=== PATIENT | male | born 1940 | race Caucasian/White ===

== ENCOUNTER → 2017-09-01 | Outpatient (CLI) | payer MEDICARE, BC ==
--- NOTE | 2017-09-01 10:32 | CT ---
EXAMINATION TYPE: CT angio thoracic/abd aorta DATE OF EXAM: 09/01/2017 COMPARISON: NONE HISTORY: Athersclerosis w/ claudication bilateral legs, stenosis of axillary graft. CT DLP: 2571.3 mGycm. Automated Exposure Control for Dose Reduction was Utilized. CONTRAST: CTA scan of the thorax, abdomen and pelvis are performed without oral and without and with IV Contras t, patient injected with 100 mL of Isovue 370. Three-D reconstructed images are created on [employer] workstation and reviewed. FINDINGS: VASCULAR: Central pulmonary arteries are patent. There is moderate atherosclerotic change of aorta e xtending into branch vessels. There is three-vessel origin from aortic arch, no significant stenosis is seen. There is patent right axillary stent graft with clips which descends right anterolateral janae st wall and abdominal wall with horizontal bypass portion over left upper pelvis and anastomosis at b ilateral groin region. Patency is present. There is significantly significant stenosis however proxim al anastomosis with lumen diameter narrows to 2.6 mm raw data axial image 223 and subsequent diameter up to 7.7 mm distal to this. Computer analysis shows lumen diameter narrowed to 2.5 mm with reconsti tution up to 7.5 mm. Computer calculates 67% diameter narrowing and 85% area narrowing at area of foc al stenosis proximal anastomosis. There is moderate plaque bilateral common femoral arteries extending into superficial deep femoral ar teries without hemodynamically significant stenosis identified in the common or superficial femoral a rteries. There is moderate to severe plaque throughout the descending aorta most prominent in the abdominal ao rta with prominent predominantly noncalcified plaque seen. There is moderate to severe plaque in the common iliac arteries bilaterally. 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 There is patent righ t internal iliac artery. There is moderate to severe calcified plaque in the bilateral external iliac arteries which become occluded right before the anastomosis. There is patent celiac access, SMA, and bilateral single renal arteries always show moderate to sever e plaque without significant stenosis. There is occlusion of the GERTRUDE at origin with suspected retrogr radha filling. LUNGS: There is bibasilar linear scarring and/or atelectasis. No pleural effusion or pneumothorax is present bilaterally. MEDIASTINUM: There are no greater than 1 cm hilar or mediastinal lymph nodes. No pericardial effusi on is seen. Mild Cardiomegaly is present. Post CABG changes with mediastinal clips and sternal wires is seen. OTHER: No additional significant abnormality is seen. LIVER/GB: No significant abnormality is appreciated. PANCREAS: No significant abnormality is seen. SPLEEN: No significant abnormality is seen. ADRENALS: No significant abnormality is seen. KIDNEYS: There are multiple simple appearing cysts scattered throughout both kidneys BOWEL: No significant abnormality is seen. GENITAL ORGANS: Prostate gland is upper limits of normal in size with central zone calcifications bul ging on bladder base, LYMPH NODES: No greater than 1cm abdominal or pelvic lymph nodes are appreciated. OSSEOUS STRUCTURES: There is multilevel spurring in the thoracic spine. There is disc space narrowing lumbosacral junction. There is facet arthropathy lower lumbar levels. OTHER: No significant additional abnormality is seen. IMPRESSION: There is long segment right-sided axillary bifemoral stent graft with focal hemodynamical ly significant stenosis at proximal anastomosis identified narrowed down to 2.5 mm, calculated at 67% diameter narrowing by computer, with 85% area narrowing calculated by [employer] computer.
== END | disposition home or self-care (01) ==
LOC: RADCTMAIN 06:24
PROVIDERS: ATTEND Surgery
DX: T82.858A Stenosis of other vascular prosthetic devices, implants and grafts, initial encounter (principal); Z01.812 Encounter for preprocedural laboratory examination
CPT/HCPCS: 82565; 84520; 75635; 71275; 36415; Q9967

== ENCOUNTER 2024-02-12 17:53 | Inpatient (IN) | payer MEDICARE, BC ==
--- NOTE | 2024-02-12 18:12 | ED ---
SOB HPI - General Chief Complaint: Shortness of Breath Stated Complaint: SOB Time Seen by Provider: 02/12/24 18:09 Source: patient, RN notes reviewed, old records reviewed Mode of arrival: ambulatory Limitations: no limitations - History of Present Illness Initial Comments: This is an 83-year-old male to the ER for evaluation of severe weakness debility . Especially with activity this has been increasing lately after stent placement. But worse over the last few days, patient becomes very short of breath with any activity and presents to the ER on triage evaluation patient is cyanotic and hypoxic MD Complaint: shortness of breath -: days(s) Severity: severe Severity scale (1-10): 10 Consistency: constant Improves With: nothing Worsens With: nothing Known History Of: congestive heart failure Context: other (Recent stent placement) Associated Symptoms: chest pain Treatments Prior to Arrival: none - Related Data Home Medications Medication Instructions Recorded Confirmed ALPRAZolam [Xanax] 0.25 mg PO BID PRN 02/12/24 02/12/24 Aspirin EC [Ecotrin] 325 mg PO DAILY 02/12/24 02/12/24 Atorvastatin [Lipitor] 80 mg PO HS 02/12/24 02/12/24 Clopidogrel [Plavix] 75 mg PO DAILY 02/12/24 02/12/24 Doxycycline Hyclate 100 mg PO BID 02/12/24 02/12/24 Ipratropium [place] 0.06%Nasal 2 spray EA NOSTRIL TID PRN 02/12/24 02/12/24 [Atrovent Nasal 0.06%] Ketoconazole 2% Cream [Nizoral 2%] 1 applic TOPICAL DAILY 02/12/24 02/12/24 Losartan Potassium [Cozaar] 100 mg PO DAILY 02/12/24 02/12/24 Nitroglycerin Sl Tabs [Nitrostat] 0.4 mg SUBLINGUAL Q5M PRN 02/12/24 02/12/24 Omeprazole [PriLOSEC] 20 mg PO DAILY 02/12/24 02/12/24 Pentoxifylline [TRENtal] 400 mg PO BID 02/12/24 02/12/24 Silver Sulfadiazine [SSD 1% Cream] 1 applic TOPICAL DAILY 02/12/24 02/12/24 amLODIPine [Norvasc] 10 mg PO DAILY 02/12/24 02/12/24 atenoloL [Tenormin] 25 mg PO DAILY 02/12/24 02/12/24 hydroCHLOROthiazide [Hydrodiuril] 25 mg PO DAILY 02/12/24 02/12/24 Allergies Allergy/AdvReac Type Severity Reaction Status Date / Time bee venom protein (honey bee) Allergy Rash/Hives Verified 02/12/24 19:30 Review of Systems ROS Statement: Those systems with pertinent positive or pertinent negative responses have been documented in the HPI. ROS Other: All systems not noted in ROS Statement are negative. Past Medical History Past Medical History: Coronary Artery Disease (CAD), Chest Pain / Angina, H yperlipidemia, Hypertension, Myocardial Infarction (DC) Past Surgical History: Coronary Bypass/CABG, Heart Catheterization With Stent Additional Past Surgical History / Comment(s): eye cataracts endarectomy General Exam Limitations: no limitations General appearance: alert, in no apparent distress, anxious, in distress Head exam: Present: atraumatic, normocephalic, normal inspection Eye exam: Present: normal appearance, PERRL, EOMI. Absent: scleral icterus, conjunctival injection, periorbital swelling ENT exam: Present: normal exam, mucous membranes moist Neck exam: Present: normal inspection. Absent: tenderness, meningismus, lymphadenopathy Respiratory exam: Present: respiratory distress, wheezes, accessory muscle use, decreased breath sounds, prolonged expiratory. Absent: rales, rhonchi, stridor Cardiovascular Exam: Present: regular rate, normal rhythm, normal heart sounds. Absent: systolic murmur, diastolic murmur, rubs, gallop, clicks GI/Abdominal exam: Present: soft, normal bowel sounds. Absent: distended, tenderness, guarding, rebound, rigid Extremities exam: Present: normal inspection, full ROM, normal capillary refill. Absent: tenderness, pedal edema, joint swelling, calf tenderness Back exam: Present: normal inspection Neurological exam: Present: alert, oriented X3, CN II-XII intact Psychiatric exam: Present: normal affect, normal mood Skin exam: Present: warm, dry, intact, normal color. Absent: rash Course Vital Signs 02/12/24 02/12/24 02/12/24 18:00 18:12 18:19 Temperature 97.4 F L Pulse Rate 54 L Respiratory 20 Rate Blood Pressure 174/71 O2 Sat by Pulse 86 L 83 L 93 L Oximetry 02/12/24 02/12/24 02/12/24 18:28 18:36 18:50 Temperature Pulse Rate 54 L 59 L Respiratory 24 Rate Blood Pressure O2 Sat by Pulse Oximetry 02/12/24 02/12/24 02/12/24 19:12 20:03 21:00 Temperature Pulse Rate 53 L 56 L 56 L Respiratory 24 20 18 Rate Blood Pressure 161/79 163/73 168/79 O2 Sat by Pulse 92 L 93 L 93 L Oximetry - Reevaluation(s) Reevaluation #1: 02/12/24 21:12 Records reviewed Reevaluation #2: 02/12/24 21:12 Patient symptoms improved with supplemental O2 Reevaluation #3: 02/12/24 21:12 Patient informed of results and questions answered Reevaluation #4: Was pt. sent in by a medical professional or institution (KATIE Harris, AMER[employer] S[employer] L[employer]AGE TE[employer]ER, urgent care, hospital, or long term...) When possible be specific @ -no Did you speak to anyone other than the patient for history (EMS, parent, family, police, friend...)? What history was obtained from this source @ -no Did you review nursing and triage notes (agree or disagree)? Why? @ -agree Are old charts reviewed (outside hosp., previous admission, EMS record, old EKG, old radiological studies, urgent care reports/EKG's, long term records)? Report findings @ -yes Differential Diagnosis (chest pain, altered mental status, abdominal pain women, abdominal pain men, vaginal bleeding, weakness, fever, dyspnea, syncope, headache, dizziness, GI bleed, back pain, seizure, CVA, palpatations, mental health, musculoskeletal)? @ -prior EKG interpreted by me (3pts min.). @ -yes X-rays interpreted by me (1pt min.). @ -yes negative for acute disease CT interpreted by me (1pt min.). @ -no U/S interpreted by me (1pt. min.). @ -no What testing was considered but not performed or refused? (CT, X-rays, U/S, labs)? Why? @ -none What meds were considered but not given or refused? Why? @ -none Did you discuss the management of the patient with other professionals (professionals i.e. Dr., PA, AMER[employer] S[employer] LANGUAGE TEACHER, lab, RT, psych nurse, social contact worker, belt and link shop supervisor, teacher, registration officer, rifle case repairer)? Give summary @ -no Was smoking cessation discussed for >3mins.? @ -no Was critical care preformed (if so, how long)? @ -no Were there social determinants of health that impacted care today? How? (Homelessness, low income, unemployed, alcoholism, drug addiction, transportation, low edu. Level, literacy, decrease access to med. care, long-term, rehab)? @ -none Was there de-escalation of care discussed even if they declined (Discuss DNR or withdrawal of care, Hospice)? DNR status @ -no What co-morbidities impacted this encounter? (DM, HTN, Smoking, COPD, CAD, Cancer, CVA, ARF, Chemo, Hep., AIDS, mental health diagnosis, sleep apnea, morbid obesity)? @ -none Was patient admitted / discharged? Hospital course, mention meds given and route, prescriptions, significant lab abnormalities, going to OR and other pertinent info. @ - Undiagnosed new problem with uncertain prognosis? @ -no Drug Therapy requiring intensive monitoring for toxicity (Heparin, Nitro, Insulin, Cardizem)? @ -no Were any procedures done? @ -no Diagnosis/symptom? @ - Acute, or Chronic, or Acute on Chronic? @ -Acute Uncomplicated (without systemic symptoms) or Complicated (systemic symptoms)? @ -Complicated Side effects of treatment? @ -no Exacerbation, Progression, or Severe Exacerbation? @ -exacerbation Poses a threat to life or bodily function? How? (Chest pain, USA, DC, pneumonia, PE, COPD, DKA, ARF, appy, cholecystitis, CVA, Diverticulitis, Homicidal, Suicidal, threat to staff... and all critical care pts) @ -yes Reevaluation #5: Differential Dyspnea: Coronary syndrome, arrhythmia, tamponade, asthma, COPD, pulmonary embolism, pneumonia, pneumothorax, pulmonary effusion, anaphylaxis, diabetic ketoacidosis, flailed chest, pulmonary contusion, diaphragmatic rupture, anemia, neuromuscular, this is not meant to be an all-inclusive list. - Consultations Consultation #1: Spoke with [facility] who agrees to admit this patient Medical Decision Making - Medical Decision Making 83 male to ER for evaluation patient has significant CHF with history of heart disease, hypertension well-controlled currently. Patient was negative for PE and will admit for CHF pulmonary edema and hypoxia - Lab Data Result diagrams: 02/12/24 18:16 02/12/24 19:21 Lab Results 02/12/24 02/12/24 02/12/24 Range/Units 18:16 18:16 18:16 WBC 10.3 (3.8-10.6) k/uL RBC 4.93 (4.30-5.90) m/uL Hgb 15.0 (13.0-17.5) gm/dL Hct 46.2 (39.0-53.0) % MCV 93.6 (80.0-100.0) fL MCH 30.5 (25.0-35.0) pg MCHC 32.6 (31.0-37.0) g/dL RDW 14.3 (11.5-15.5) % Plt Count 268 (150-450) k/uL MPV 6.9 Neutrophils % 74 % Lymphocytes % 14 % Monocytes % 6 % Eosinophils % 3 % Basophils % 1 % Neutrophils # 7.6 (1.3-7.7) k/uL Lymphocytes # 1.4 (1.0-4.8) k/uL Monocytes # 0.7 (0-1.0) k/uL Eosinophils # 0.3 (0-0.7) k/uL Basophils # 0.1 (0-0.2) k/uL PT 10.6 (10.0-12.5) sec INR 1.0 (<1.2) APTT 23.0 (22.0-30.0) sec D-Dimer 4.32 H (<0.60) mg/L FEU Sodium (137-145) mmol/L Potassium (3.5-5.1) mmol/L Chloride (98-107) mmol/L Carbon Dioxide (22-30) mmol/L Anion Gap mmol/L BUN (9-20) mg/dL Creatinine (0.66-1.25) mg/dL Est GFR (CKD-EPI)AfAm (>60 ml/min/1.73 sqM) Est GFR (CKD-EPI)NonAf (>60 ml/min/1.73 sqM) Glucose (74-99) mg/dL Plasma Lactic Acid Jett 1.5 (0.7-2.0) mmol/L Calcium (8.4-10.2) mg/dL Magnesium (1.6-2.3) mg/dL Total Bilirubin (0.2-1.3) mg/dL AST (17-59) U/L ALT (4-49) U/L Alkaline Phosphatase (38-126) U/L Troponin I (0.000-0.034) ng/mL NT-Pro-B Natriuret Pep pg/mL Total Protein (6.3-8.2) g/dL Albumin (3.5-5.0) g/dL 02/12/24 02/12/24 Range/Units 18:16 19:21 WBC (3.8-10.6) k/uL RBC (4.30-5.90) m/uL Hgb (13.0-17.5) gm/dL Hct (39.0-53.0) % MCV (80.0-100.0) fL MCH (25.0-35.0) pg MCHC (31.0-37.0) g/dL RDW (11.5-15.5) % Plt Count (150-450) k/uL MPV Neutrophils % % Lymphocytes % % Monocytes % % Eosinophils % % Basophils % % Neutrophils # (1.3-7.7) k/uL Lymphocytes # (1.0-4.8) k/uL Monocytes # (0-1.0) k/uL Eosinophils # (0-0.7) k/uL Basophils # (0-0.2) k/uL PT (10.0-12.5) sec INR (<1.2) APTT (22.0-30.0) sec D-Dimer (<0.60) mg/L FEU Sodium 136 L (137-145) mmol/L Potassium 3.6 (3.5-5.1) mmol/L Chloride 106 (98-107) mmol/L Carbon Dioxide 24 (22-30) mmol/L Anion Gap 6 mmol/L BUN 28 H (9-20) mg/dL Creatinine 1.21 (0.66-1.25) mg/dL Est GFR (CKD-EPI)AfAm 64 (>60 ml/min/1.73 sqM) Est GFR (CKD-EPI)NonAf 55 (>60 ml/min/1.73 sqM) Glucose 101 H (74-99) mg/dL Plasma Lactic Acid Jett (0.7-2.0) mmol/L Calcium 8.6 (8.4-10.2) mg/dL Magnesium 1.8 (1.6-2.3) mg/dL Total Bilirubin 0.7 (0.2-1.3) mg/dL AST 29 (17-59) U/L ALT 28 (4-49) U/L Alkaline Phosphatase 55 (38-126) U/L Troponin I <0.012 (0.000-0.034) ng/mL NT-Pro-B Natriuret Pep 1060 pg/mL Total Protein 5.9 L (6.3-8.2) g/dL Albumin 3.4 L (3.5-5.0) g/dL - EKG Data -: EKG Interpreted by Me (EKG is A-fib 51 QRS 102 QTc 433) - Radiology Data Radiology results: report reviewed (X-ray CTA chest pulmonary edema), image reviewed Critical Care Time Critical Care Time: Yes Total Critical Care Time: 31 Disposition Clinical Impression: Acute respiratory failure, Acute pulmonary edema, Congestive heart failure, Hypoxia Disposition: ADMITTED IP TO THIS [facility] Condition: Serious Is patient prescribed a controlled substance at d/c from ED?: No Referrals: Beny Negron MD [Primary Care Provider] - 1-2 days Time of Disposition: 21:00
[2024-02-12] MEDS: SODIUM CHLORIDE 0.9% 500 ML 500 ML IV STA (18:22)
[2024-02-12] MEDS: IPRATROPIUM-ALBUTEROL 3 ML NEB INHALATION STA (18:33)
[2024-02-12 18:39] LABS: Basophils # (A) 0.1 k/uL (0-0.2); Basophils % (A) 1 %; Eosinophils # (A) 0.3 k/uL (0-0.7); Eosinophils % (A) 3 %; HCT 46.2 % (39.0-53.0); Lymphocytes # (A) 1.4 k/uL (1.0-4.8); Lymphocytes % (A) 14 %; MCH 30.5 pg (25.0-35.0); MCHC 32.6 g/dL (31.0-37.0); MCV 93.6 fL (80.0-100.0); Mean Platelet Volume 6.9; Monocytes # (A) 0.7 k/uL (0-1.0); Monocytes % (A) 6 %; Neutrophils # (A) 7.6 k/uL (1.3-7.7); Neutrophils % (A) 74 %; Platelet Count 268 k/uL (150-450); RBC 4.93 m/uL (4.30-5.90); RDW 14.3 % (11.5-15.5); WBC 10.3 k/uL (3.8-10.6)
--- NOTE | 2024-02-12 18:50 | XR ---
EXAMINATION TYPE: XR chest 1V portable DATE OF EXAM: 02/12/2024 6:45 PM COMPARISON: Previous CT study 09/01/2017. CLINICAL INDICATION: Male, 83 years old with history of sob; [facility] TECHNIQUE: XR chest 1V portable Frontal view of the chest. FINDINGS: Cardiomegaly and patchy bilateral interstitial opacities. Possible trace bilateral pleural effusions. Median sternotomy wires noted. Low lung volumes. No pneumothorax. No acute osseous abnormality. IMPRESSION: Cardiomegaly, trace bilateral pleural effusions and patchy interstitial opacities bilaterally suggest aidan of pulmonary edema. Superimposed infectious etiology would be possible as well. [facility], , 02/12/2024 6:47 PM
[2024-02-12 18:59] LABS: Prothrombin Time 10.6 sec (10.0-12.5)
[2024-02-12 19:51] LABS: ALT 28 U/L (4-49); AST 29 U/L (17-59); African American GFR (CKD) 64 (>60 ml/min/1.73 sqM); Albumin 3.4 g/dL (3.5-5.0); Alkaline Phosphatase 55 U/L (38-126); Anion Gap 6 mmol/L; Blood Urea Nitrogen 28 mg/dL (9-20); Calcium 8.6 mg/dL (8.4-10.2); Carbon Dioxide 24 mmol/L (22-30); Chloride 106 mmol/L (98-107); Glucose 101 mg/dL (74-99); Magnesium 1.8 mg/dL (1.6-2.3); Non-African American GFR(CKD) 55 (>60 ml/min/1.73 sqM); Potassium 3.6 mmol/L (3.5-5.1); Sodium 136 mmol/L (137-145); Total Bilirubin 0.7 mg/dL (0.2-1.3); Total Protein 5.9 g/dL (6.3-8.2)
[2024-02-12 19:59] LABS: NT-Pro-B-Type Natriuretic Pept 1060 pg/mL
--- NOTE | 2024-02-12 20:46 | CT ---
EXAMINATION TYPE: CT angio chest DATE OF EXAM: 02/12/2024 8:37 PM COMPARISON: Previous CT study 09/01/2017. CLINICAL INDICATION: Male, 83 years old with history of pe; chest tightness and sob for 3 days. incre ase tightness to chest. TECHNIQUE/CONTRAST: CTA scan of the thorax is performed with IV Contrast, patient injected with 80ml mL of Isovue 370, AR P images are created and reviewed these are created on a separate workstation.. CT DLP: 525 mGycm, Automated exposure control for dose reduction was used. FINDINGS: Common origin of the right brachiocephalic and left common carotid arteries. Cardiomegaly without significant pericardial effusion. A site of cardiac disease and mild dilatation of the ascending thoracic aorta measuring up to 4.0 cm in diameter the level of the right pulmonary a rtery. Main pulmonary artery normal in caliber. No pulmonary artery filling defects to suggest acute pulmonary emboli. Coronary calcifications. Enlarged right lower paratracheal mediastinal lymph node m easuring 14 mm in short axis. Right hilar lymphadenopathy with largest lymph node measuring 13 mm in short axis. Soft tissue prominence in the bilateral hilar regions which is nonspecific. No pathologic axillary lymphadenopathy. Possible vascular graft visualized traversing the right later al chest wall. Imaging through the lungs demonstrates moderate bilateral pleural effusions with adjacent lower lobe consolidations. There is bronchial wall thickening, most pronounced in the lower lobes. No definite s uspicious pulmonary mass. Scattered groundglass opacities also noted. No pneumothorax. Partially visualized upper abdomen demonstrates no acute abnormalities. Thoracic spine degenerative c hanges with diffuse interest for information. Median sternotomy wires noted. Likely previous CABG. IMPRESSION: 1. Cardiomegaly, moderate bilateral pleural effusions and scattered groundglass and consolidative op acities as above. Findings could reflect sequelae of pulmonary edema with superimposed infectious penny ology a possibility in the appropriate clinical setting. 2. Mediastinal and hilar lymphadenopathy, possibly reactive in etiology. 3. Mildly dilated ascending thoracic aorta. 4. Additional nonacute findings as above. [facility], , 02/12/2024 8:43 PM
[2024-02-12] MEDS: ENALAPRILAT 1.25 MG/ML 1 ML VIAL IVP STA (21:02)
[2024-02-12] MEDS: FUROSEMIDE 10 MG/ML 4 ML VIAL IV SCH (22:16)
[2024-02-12] MEDS: ENALAPRILAT 1.25 MG/ML 1 ML VIAL IVP SCH (22:19)
[2024-02-12] MEDS: NITROGLYCERIN OINT 1 INCH/GM PACKET TOPICAL STA (22:41)
[2024-02-12] MEDS: NITROGLYCERIN OINT 1 INCH/GM PACKET TOPICAL SCH (23:15)
[2024-02-13] MEDS: IPRATROPIUM-ALBUTEROL 3 ML NEB INHALATION SCH (07:39)
[2024-02-13] MEDS: atenoloL 25 MG TAB PO SCH (08:42)
[2024-02-13] MEDS: ASPIRIN 81 MG PO SCH (08:42)
[2024-02-13] MEDS: amLODIPine 10 MG TAB PO SCH (08:42)
[2024-02-13] MEDS: hydroCHLOROthiazide 25 MG TAB PO SCH (08:42)
[2024-02-13] MEDS: CLOPIDOGREL 75 MG TAB PO SCH (08:42)
[2024-02-13] MEDS: LOSARTAN 50 MG TAB PO SCH (08:43)
[2024-02-13] MEDS ORDERED: NITROGLYCERIN SL TABS 0.4 MG TAB SUBLINGUAL PRN (09:17)
[2024-02-13] MEDS ORDERED: ALPRAZolam 0.25 MG TAB PO PRN (09:17)
[2024-02-13] MEDS: POTASSIUM CHLORIDE ER 20 MEQ TAB.ER PO STA (10:23)
--- NOTE | 2024-02-13 10:48 | P.CRDCN ---
History of Present Illness History of present illness: HISTORY OF PRESENT ILLNESS: This is a 83-year-old male with a past medical history significant for carotid stenosis with previous bilateral carotid endarterectomy, hypertension, hyperlipi demia, coronary artery disease with previous CABG and subsequent stenting, and peripheral arterial disease with previous lower extremity intervention. Patient follows with a oven laborer at [facility], Dr. Ramos. We have been asked to see the patient in consultation for congestive heart failure. Patient examined at the bedside in the emergency room. Patient presented to the hospital to chief complaint of shortness of breath. Patient states he has been feeling short of breath for the past 5 days. He also reports having a cough. He denied any fever at home. He denies any chest pain or pressure. Denies any lower extremity swelling. He states that he saw his primary oven laborer on Friday and at that time he just had a cough but no shortness of breath. He states that his oven laborer did recommend that he establish with a hand box folder. The patient gives additional history that he underwent a three-vessel CABG in 1996. He states sometime after that he had 2 subsequent stents placed but is unsure of the year. He states in June 2023 he underwent angioplasty and insertion of 2 more stents at [facility]. Patient also reports history of bilateral carotid endarterectomy performed previously by Dr. Pineda. He reports back in 2013 he underwent lower extremity intervention due to peripheral arterial disease. He states he was at [facility] earlier this month and states "On January 27 they put a graft in my chest and cleaned out the arteries in both of my legs". The patient was found to be hypoxic upon arrival to the emergency room with oxygen saturations in the mid 80s on room air. Patient was started on IV Lasix. Additionally, EKG on admission revealed atrial fibrillation with slow ventricular rate. DIAGNOSTICS: - EKG reveals atrial fibrillation with slow ventricular rate - Chest xray cardiomegaly, trace bilateral pleural effusions and patchy interstitial opacities bilaterally suggestive of pulmonary edema - CT angio of the chest: Cardiomegaly, moderate bilateral pleural effusions and scattered groundglass and consolidative opacities as above. Mediastinal and hilar lymphadenopathy, mildly distended ascending thoracic aorta. - Laboratory data: WBC 10.3. Hemoglobin 15.0. Platelet count 268. Sodium 136. Potassium 3.6. BUN 28. Creatinine 1.21. Troponin negative x 3. proBNP 1060. - Current home cardiac medications include aspirin 325 mg daily, amlodipine 10 mg daily, Plavix 75 mg daily, atenolol 25 mg daily, hydrochlorothiazide 25 mg daily, losartan 100 mg daily, atorvastatin 80 mg at night - No previous echocardiogram, stress test, or cardiac catheterization available in EMR for review REVIEW OF SYSTEMS: At the time of my exam: CONSTITUTIONAL: Denies fever or chills. HEENT: Denies blurred vision, vision changes, or eye pain. Denies hemoptysis CARDIOVASCULAR: Denies chest pain. Denies orthopnea. Denies PND. Denies palpitations RESPIRATORY: Denies shortness of breath. GASTROINTESTINAL: Denies abdominal pain. Denies nausea or vomiting. HEMATOLOGIC: Denies bleeding disorders. GENITOURINARY: Denies any blood in urine. SKIN: Denies pruitis. Denies rash. PHYSICAL EXAM: VITAL SIGNS: Reviewed. GENERAL: Well-developed in no acute distress. HEENT: Head is normocephalic. Pupils are equal, round. Sclerae anicteric. Mucous membranes of the mouth are moist. Neck supple. No JVD or thyromegaly. Left carotid bruit noted. LUNGS: Respirations even and unlabored. Lungs diminished at the bases with a few fine crackles. HEART: Irregular rate and rhythm. S1 and S2 heard. Systolic murmur noted. ABDOMEN: Soft. Nondistended. Nontender. EXTREMITIES: Normal range of motion. No clubbing or cyanosis. Peripheral pulse s intact. No lower extremity edema NEUROLOGIC: Awake and alert. Oriented x 3. ASSESSMENT: Shortness of breath Acute heart failure, type unknown, echo pending Acute hypoxic respiratory failure requiring supplemental oxygen New onset atrial fibrillation with controlled ventricular rate Coronary artery disease with previous CABG and subsequent stenting Peripheral arterial disease with previous lower extremity intervention History of carotid stenosis with previous bilateral carotid endarterectomy Hypertension Hyperlipidemia PLAN: Obtain 2D echo to assess cardiac structure and function Resume home cardiac medications Continue IV Lasix 40 mg every 12 hours Daily weights, accurate intake and output, and monitoring of kidney function Continue Plavix. Discontinue aspirin. Begin Eliquis 5 mg twice a day. Obtain records from [facility] Patient would like to establish care with Dr. Paige postdischarge Further recommendations pending patient course Nurse practitioner note has been reviewed by physician. Signing provider agrees with the documented findings, assessment, and plan of care documented by CYCLE TOURING GUIDE as a scribe. Past Medical History Past Medical History: Coronary Artery Disease (CAD), Chest Pain / Angina, Hyperlipidemia, Hypertension, Myocardial Infarction ([place]) Past Surgical History: Coronary Bypass/CABG, Heart Catheterization With Stent Additional Past Surgical History / Comment(s): eye cataracts endarectomy Medications and Allergies Home Medications Medication Instructions Recorded Confirmed Type ALPRAZolam [Xanax] 0.25 mg PO BID PRN 02/12/24 02/12/24 History Aspirin EC [Ecotrin] 325 mg PO DAILY 02/12/24 02/12/24 History Atorvastatin [Lipitor] 80 mg PO HS 02/12/24 02/12/24 History Clopidogrel [Plavix] 75 mg PO DAILY 02/12/24 02/12/24 History Doxycycline Hyclate 100 mg PO BID 02/12/24 02/12/24 History Ipratropium [place] 0.06%Nasal 2 spray EA NOSTRIL TID PRN 02/12/24 02/12/24 History [Atrovent Nasal 0.06%] Ketoconazole 2% Cream [Nizoral 2%] 1 applic TOPICAL DAILY 02/12/24 02/12/24 History Losartan Potassium [Cozaar] 100 mg PO DAILY 02/12/24 02/12/24 History Nitroglycerin Sl Tabs [Nitrostat] 0.4 mg SUBLINGUAL Q5M PRN 02/12/24 02/12/24 History Omeprazole [PriLOSEC] 20 mg PO DAILY 02/12/24 02/12/24 History Pentoxifylline [TRENtal] 400 mg PO BID 02/12/24 02/12/24 History Silver Sulfadiazine [SSD 1% Cream] 1 applic TOPICAL DAILY 02/12/24 02/12/24 History amLODIPine [Norvasc] 10 mg PO DAILY 02/12/24 02/12/24 History atenoloL [Tenormin] 25 mg PO DAILY 02/12/24 02/12/24 History hydroCHLOROthiazide [Hydrodiuril] 25 mg PO DAILY 02/12/24 02/12/24 History Allergies Allergy/AdvReac Type Severity Reaction Status Date / Time bee venom protein (honey bee) Allergy Rash/Hives Verified 02/12/24 19:30 Physical Exam Vitals: Vital Signs Temp Pulse Resp BP Pulse Ox 02/13/24 08:48 67 18 145/65 97 02/13/24 07:50 56 L 02/13/24 07:41 52 L 96 02/13/24 07:29 97.6 F 63 18 147/65 94 L 02/13/24 06:52 60 21 136/69 94 L 02/13/24 04:14 98.0 F 61 16 131/55 91 L 02/13/24 02:41 50 L 17 128/63 93 L 02/12/24 22:14 55 L 20 189/68 92 L 02/12/24 21:26 61 18 163/65 93 L 02/12/24 21:00 56 L 18 168/79 93 L 02/12/24 20:03 56 L 20 163/73 93 L 02/12/24 19:12 53 L 24 161/79 92 L 02/12/24 18:50 59 L 02/12/24 18:36 54 L 02/12/24 18:28 24 02/12/24 18:19 93 L 02/12/24 18:12 83 L 02/12/24 18:00 97.4 F L 54 L 20 174/71 86 L Intake and Output 02/12/24 02/13/24 02/13/24 22:59 06:59 14:59 Output Total 700 Balance -700 Output: Urine 700 Other: Weight 92.986 kg Results 02/12/24 18:16 02/12/24 19:21 Cardiac Enzymes 02/12/24 02/12/24 02/12/24 Range/Units 18:16 19:21 21:19 AST 29 (17-59) U/L Troponin I <0.012 <0.012 (0.000-0.034) ng/mL 02/13/24 Range/Units 00:24 AST (17-59) U/L Troponin I <0.012 (0.000-0.034) ng/mL Coagulation 02/12/24 Range/Units 18:16 PT 10.6 (10.0-12.5) sec APTT 23.0 (22.0-30.0) sec CBC 02/12/24 Range/Units 18:16 WBC 10.3 (3.8-10.6) k/uL RBC 4.93 (4.30-5.90) m/uL Hgb 15.0 (13.0-17.5) gm/dL Hct 46.2 (39.0-53.0) % Plt Count 268 (150-450) k/uL Comprehensive Metabolic Panel 02/12/24 Range/Units 19:21 Sodium 136 L (137-145) mmol/L Potassium 3.6 (3.5-5.1) mmol/L Chloride 106 (98-107) mmol/L Carbon Dioxide 24 (22-30) mmol/L BUN 28 H (9-20) mg/dL Creatinine 1.21 (0.66-1.25) mg/dL Glucose 101 H (74-99) mg/dL Calcium 8.6 (8.4-10.2) mg/dL AST 29 (17-59) U/L ALT 28 (4-49) U/L Alkaline Phosphatase 55 (38-126) U/L Total Protein 5.9 L (6.3-8.2) g/dL Albumin 3.4 L (3.5-5.0) g/dL Current Medications Generic Name Dose Route Start Last Admin Trade Name Freq PRN Reason Stop Dose Admin Albuterol/Ipratropium 3 ml 02/13/24 08:00 02/13/24 07:39 Ipratropium-Albuterol 3 Ml Neb INHALATION 3 ml RT-TID LAISHA Administration Alprazolam 0.25 mg 02/13/24 09:17 Alprazolam 0.25 Mg Tab PO BID PRN Anxiety Amlodipine Besylate 10 mg 02/13/24 09:00 02/13/24 08:42 Amlodipine 10 Mg Tab PO 10 mg DAILY LAISHA Administration Aspirin 81 mg 02/13/24 09:00 02/13/24 08:42 Aspirin 81 Mg PO 81 mg DAILY LAISHA Administration Atenolol 25 mg 02/13/24 09:00 02/13/24 08:42 Atenolol 25 Mg Tab PO 25 mg DAILY LAISHA Administration Atorvastatin Calcium 80 mg 02/13/24 21:00 Atorvastatin 80 Mg Tab PO HS [facility] Clopidogrel Bisulfate 75 mg 02/13/24 09:00 02/13/24 08:42 Clopidogrel 75 Mg Tab PO 75 mg DAILY LAISHA Administration Furosemide 40 mg 02/12/24 21:15 02/13/24 08:43 Furosemide 10 Mg/Ml 4 Ml Vial IV 40 mg Q12H LAISHA Administration Hydrochlorothiazide 25 mg 02/13/24 09:00 02/13/24 08:42 Hydrochlorothiazide 25 Mg Tab PO 25 mg DAILY LAISHA Administration Losartan Potassium 100 mg 02/13/24 09:00 02/13/24 08:43 Losartan 50 Mg Tab PO 100 mg DAILY LAISHA Administration Nitroglycerin 0.4 mg 02/13/24 09:17 Nitroglycerin Sl Tabs 0.4 Mg Tab SUBLINGUAL Q5M PRN Chest Pain Intake and Output 02/12/24 02/13/24 02/13/24 22:59 06:59 14:59 Output Total 700 Balance -700 Output: Urine 700 Other: Weight 92.986 kg 02/12/24 18:16 02/12/24 19:21
[2024-02-13] MEDS: APIXABAN 5 MG TAB PO SCH (11:19)
--- NOTE | 2024-02-13 11:50 | CA ---
Transthoracic Echo Report Name: Sajan Hernandez Age: 83 Gender: M : 1940 Exam Date: 02/13/2024 08:52 Exam Location: [facility] Ht (in): 69 Wt (lb): 205 Ordering Physician: Santos Wynn DO Attending/Referring Phys: [id number], [employer] Driver Juana Avilez RDCS Procedure CPT: Indications: Heart failure Cardiac Hx: Technical Quality: Fair Contrast 1: Total Dose (mL): Contrast 2: Total Dose (mL): MEASUREMENTS (Male / Female) Normal Values 2D ECHO LV Diastolic Diameter PLAX 5.4 cm 4.2 - 5.9 / 3.9 - 5.3 cm LV Systolic Diameter PLAX 3.6 cm IVS Diastolic Thickness 1.2 cm 0.6 - 1.0 / 0.6 - 0.9 cm LVPW Diastolic Thickness 1.2 cm 0.6 - 1.0 / 0.6 - 0.9 cm LV Relative Wall Thickness 0.4 LVOT Diameter 2.3 cm LV Diastolic Volume MOD BP 102.9 cm??? 67 - 155 / 56 - 104 cm??? LV Systolic Volume MOD BP 38.4 cm??? 22 - 58 / 19 - 49 cm??? LV Ejection Fraction MOD BP 62.7 % >= 55 % LV Cardiac Index MOD BP 2007.0 cm???/min???m??? LV Diastolic Volume MOD 4C 99.7 cm??? LV Systolic Volume MOD 4C 36.9 cm??? LV Ejection Fraction MOD 4C 63.0 % LV Cardiac Index MOD 4C 1954.9 cm???/min???m??? LV Diastolic Length 4C 7.8 cm LV Systolic Length 4C 6.4 cm LV Diastolic Volume MOD 2C 106.4 cm??? LV Systolic Volume MOD 2C 38.6 cm??? LV Ejection Fraction MOD 2C 63.7 % LV Cardiac Index MOD 2C 2109.2 cm???/min???m??? LV Diastolic Length 2C 7.7 cm LV Systolic Length 2C 6.8 cm LA Volume 56.1 cm??? 18 - 58 / 22 - 52 cm??? LA Volume Index 26.1 cm???/m??? 16 - 28 cm???/m??? Ascending Aorta Diameter 3.8 cm DOPPLER AV Peak Velocity 193.3 cm/s AV Peak Gradient 14.9 mmHg AV Mean Velocity 127.4 cm/s AV Mean Gradient 7.4 mmHg AV Velocity Time Integral 40.5 cm LVOT Peak Velocity 96.1 cm/s LVOT Peak Gradient 3.7 mmHg LVOT Velocity Time Integral 21.2 cm LVOT Stroke Volume 91.3 cm??? LVOT Stroke Volume Index 43.8 ml/m??? LVOT Cardiac Index 2842.7 cm???/min???m??? AV Area Cont Eq vti 2.3 cm??? AV Area Cont Eq pk 2.1 cm??? MV Area PHT 4.6 cm??? Mitral E Point Velocity 100.0 cm/s Mitral A Point Velocity 27.9 cm/s Mitral E to A Ratio 3.6 MV Deceleration Time 163.7 ms TR Peak Velocity 251.3 cm/s TR Peak Gradient 25.3 mmHg Right Atrial Pressure 5.0 mmHg Pulmonary Artery Systolic Pressu 30.3 mmHg Right Ventricular Systolic Press 30.3 mmHg PV Peak Velocity 131.8 cm/s PV Peak Gradient 6.9 mmHg FINDINGS Left Ventricle Left ventricular ejection fraction is estimated at 55-60 %. Mildly increased septal wall thickness. Left ventricular cavity size normal. No obvious regional wall motion abnormalities. Right Ventricle Normal right ventricular size and function. Right ventricular systolic pressure within normal limits. Right Atrium Normal right atrial size. Left Atrium Normal left atrial size. Mitral Valve Structurally normal mitral valve. No evidence for mitral valve prolapse. No mitral stenosis. Mild mitral regurgitation.mitral annular calcification. Aortic Valve Trileaflet aortic valve. Aortic valve sclerosis. No aortic valve stenosis, mild regurgitation. Tricuspid Valve Structurally normal tricuspid valve. No tricuspid stenosis. Mild tricuspid regurgitation. Pulmonic Valve Structurally normal pulmonic valve. No pulmonic stenosis. Mild pulmonic regurgitation. Pericardium Small pericardial effusion. Left pleural effusion. Aorta Normal size aortic root and proximal ascending aorta. CONCLUSIONS 1. Normal left ventricular size and systolic function 2. Mild mitral, aortic and tricuspid regurgitation Previewed by: Dr. Inge Paige MD (Electronically Signed) Final Date: 13 February 2024 11:49
--- NOTE | 2024-02-13 12:48 | P.HPIM ---
History of Present Illness H&P Date: 02/13/24 Chief Complaint: Shortness of breath Patient is a an 83-year-old male with past medical history of CAD with previous CABG and recent stent placement, and bilateral carotid endarterectomy, hypertension, hyperlipidemia, peripheral arterial disease presented to the ED with shortness of breath and coughing. He mentions of having a cough with a yellow sticky sputum production for 6-8 months. He recently saw his records technician and underwent a balloon angioplasty on 01/28/24. Subsequently his records technician wanted to do a nuclear stress test. Additonally, he started experiecing chills. That prompted him to go see his primary care physician who prescribed him Doxycycline. He mentions the cough was better after the antibiotic. But yesterday night he started experiencing shortness of breath and chest tightness. Moreover, he reports that the fingers of right hand are stiff when he wakes up in the morning that gets better during the day. Denies fever, palpitations, abdominal pain, nausea, vomiting, dysuria, hemturia, hematochezia, melena, numbness, joint pain, muscle aches. ED documentation reviewed. In the ED patient was treated with enalaprilat, DuoNeb, nitroglycerin ointment, 0.9 normal saline. Vitals on admission T 97.4 F, MD 54, RR 20, BP 174/71, O2 sat 86% on room air, 97% on 3 L oxygen via nasal cannula EKG independently interpreted as atrial fibrillation with rate 51 bpm, QTc 433 ms CXR shows cardiomegaly, trace bilateral pleural effusion and patchy interstitial opacities bilaterally suggestive of pulmonary edema/possible superimposed infectious etiology Chest CTA shows cardiomegaly and moderate bilateral pleural effusion and scattered groundglass and consolidative opacities, could reflect sequel of pulmonary edema with superimposed infectious etiology. Mediastinal and hilar lymphadenopathy. Mildly dilated ascending thoracic aorta Echocardiogram shows EF 55-60%, normal left ventricular size and systolic function, mild MR, AR, TR Labs on admission show WBC 10.3, hemoglobin 15, sodium 136, BUN 28, creatinine 1.21, lactic acid 1.5, magnesium 1.8 INR 1.0, D-dimer 4.32, troponin I <0.012 x 3, proBNP 1060 Respiratory panel is negative Review of systems: Pertinent positives and negatives as discussed in HPI, a complete review of systems was performed and all other systems are negative. PMH: Coronary artery disease, [place], hyperlipidemia, hypertension PSH: CABG, heart catheterization with stent, bilateral carotid endarectomy Social history: Tobacco: Former smoker Alcohol: Denies use Recreational drugs: Denies use Travel: No recent travel history Sick contacts: None Physical examination: Vital signs reviewed General: nontoxic, no distress, appears at stated age Derm: warm, dry, intact Head: atraumatic, normocephalic, symmetric Eyes: EOMI, anicteric sclera Mouth: no lip lesion, mucus membranes moist Cardiovascular: S1 S2 reg, no murmur Lungs: CTA bilateral, no rhonchi, no rales, no accessory muscle use Abdominal: soft, non-tender to palpation Extremities: No cyanosis, clubbing, or pedal edema. Neuro: Alert, Oriented, Gross neurological examination did not reveal any focal deficits. Psych: well appearing, appropriate affect Assessment/Plan: Patient is an 83-year-old male with past medical history of CAD with CABG and recent stent placement presented to the ED with shortness of breath. He has been admitted for acute hypoxic respiratory failure secondary to acute congestiv e heart failure Active: #. Acute hypoxic respiratory failure #. Acute congestive heart failure proBNP 1060 Echocardiogram shows EF 55-60%, normal left ventricular size and systolic function, mild MR, AR, TR Continue supplemental oxygen, currently on 3L oxygen via nasal cannula Continue DuoNebs 3 mL 3 times daily and furosemide 40 mg IV every 12 hours Accurate I/Os Continue telemetry monitoring Cardiology consulted #. New onset atrial fibrillation with controlled ventricular rate Started on Eliquis 5 mg PO BID #. Hypokalemia Potassium chloride 20 meq PO once ordered Chronic: #. CAD s/p CABG and recent stenting on DAPT Continue Atorvastatin 80 mg p.o. at bedtime and Plavix 75 mg p.o. daily Aspirin discontinued #. Hypertension Continue amlodipine 10 mg PO daily, atenolol 25 mg p.o. daily, hydrochlorothiazide 25 mg p.o. daily, losartan 100 mg p.o. daily #. Anxiety Continue alprazolam 0.5 mg p.o. twice daily F: None E: Potassium chloride 20 meq PO N: Heart healthy diet A: Ambulatory DVT prophylaxis: Eliquis 5 mg PO BID GI prophylaxis: Pantoprazole 40 mg p.o. daily The patient is admitted with an anticipated more than 2 midnight stay for evaluation of shortness of breath CODE STATUS: FULL CODE Discussed with: Patient Anticipated discharge place: Home Past Medical History Past Medical History: Coronary Artery Disease (CAD), Chest Pain / Angina, Hyper lipidemia, Hypertension, Myocardial Infarction ([place]) Past Surgical History: Coronary Bypass/CABG, Heart Catheterization With Stent Additional Past Surgical History / Comment(s): eye cataracts endarectomy Medications and Allergies Home Medications Medication Instructions Recorded Confirmed Type ALPRAZolam [Xanax] 0.25 mg PO BID PRN 02/12/24 02/12/24 History Aspirin EC [Ecotrin] 325 mg PO DAILY 02/12/24 02/12/24 History Atorvastatin [Lipitor] 80 mg PO HS 02/12/24 02/12/24 History Clopidogrel [Plavix] 75 mg PO DAILY 02/12/24 02/12/24 History Doxycycline Hyclate 100 mg PO BID 02/12/24 02/12/24 History Ipratropium [place] 0.06%Nasal 2 spray EA NOSTRIL TID PRN 02/12/24 02/12/24 History [Atrovent Nasal 0.06%] Ketoconazole 2% Cream [Nizoral 2%] 1 applic TOPICAL DAILY 02/12/24 02/12/24 History Losartan Potassium [Cozaar] 100 mg PO DAILY 02/12/24 02/12/24 History Nitroglycerin Sl Tabs [Nitrostat] 0.4 mg SUBLINGUAL Q5M PRN 02/12/24 02/12/24 History Omeprazole [PriLOSEC] 20 mg PO DAILY 02/12/24 02/12/24 History Pentoxifylline [TRENtal] 400 mg PO BID 02/12/24 02/12/24 History Silver Sulfadiazine [SSD 1% Cream] 1 applic TOPICAL DAILY 02/12/24 02/12/24 History amLODIPine [Norvasc] 10 mg PO DAILY 02/12/24 02/12/24 History atenoloL [Tenormin] 25 mg PO DAILY 02/12/24 02/12/24 History hydroCHLOROthiazide [Hydrodiuril] 25 mg PO DAILY 02/12/24 02/12/24 History Allergies Allergy/AdvReac Type Severity Reaction Status Date / Time bee venom protein (honey bee) Allergy Rash/Hives Verified 02/12/24 19:30 Physical Exam Vitals: Vital Signs Temp Pulse Resp BP Pulse Ox 02/13/24 08:48 67 18 145/65 97 02/13/24 07:50 56 L 02/13/24 07:41 52 L 96 02/13/24 07:29 97.6 F 63 18 147/65 94 L 02/13/24 06:52 60 21 136/69 94 L 02/13/24 04:14 98.0 F 61 16 131/55 91 L 02/13/24 02:41 50 L 17 128/63 93 L 02/12/24 22:14 55 L 20 189/68 92 L 02/12/24 21:26 61 18 163/65 93 L 02/12/24 21:00 56 L 18 168/79 93 L 02/12/24 20:03 56 L 20 163/73 93 L 02/12/24 19:12 53 L 24 161/79 92 L 02/12/24 18:50 59 L 02/12/24 18:36 54 L 02/12/24 18:28 24 02/12/24 18:19 93 L 02/12/24 18:12 83 L 02/12/24 18:00 97.4 F L 54 L 20 174/71 86 L Intake and Output 02/12/24 02/13/24 02/13/24 22:59 06:59 14:59 Output Total 700 Balance -700 Output: Urine 700 Other: Weight 92.986 kg Results CBC & Chem 7: 02/12/24 18:16 02/12/24 19:21 Labs: Abnormal Lab Results - Last 24 Hours (Table) 02/12/24 02/12/24 Range/Units 18:16 19:21 D-Dimer 4.32 H (<0.60) mg/L FEU Sodium 136 L (137-145) mmol/L BUN 28 H (9-20) mg/dL Glucose 101 H (74-99) mg/dL Total Protein 5.9 L (6.3-8.2) g/dL Albumin 3.4 L (3.5-5.0) g/dL
[2024-02-13] MEDS ORDERED: ATORVASTATIN 80 MG TAB PO SCH (21:00)
[2024-02-13] MEDS: ATORVASTATIN 80 MG TAB PO SCH (21:01)
[2024-02-14 08:14] LABS: HCT 44.6 % (39.0-53.0); HGB 14.8 gm/dL (13.0-17.5); MCHC 33.2 g/dL (31.0-37.0); MCV 93.4 fL (80.0-100.0); Mean Platelet Volume 7.2; Platelet Count 259 k/uL (150-450); RBC 4.77 m/uL (4.30-5.90); RDW 14.7 % (11.5-15.5); WBC 9.7 k/uL (3.8-10.6)
[2024-02-14 08:22] LABS: African American GFR (CKD) 62 (>60 ml/min/1.73 sqM); Anion Gap 11 mmol/L; Blood Urea Nitrogen 30 mg/dL (9-20); Calcium 8.9 mg/dL (8.4-10.2); Carbon Dioxide 25 mmol/L (22-30); Chloride 100 mmol/L (98-107); Glucose 130 mg/dL (74-99); Non-African American GFR(CKD) 53 (>60 ml/min/1.73 sqM); Potassium 3.2 mmol/L (3.5-5.1); Sodium 136 mmol/L (137-145)
[2024-02-14] MEDS: POTASSIUM CHLORIDE ER 20 MEQ TAB.ER PO STA (09:13)
[2024-02-14 11:03] VITALS: BMI 30.2
--- NOTE | 2024-02-14 12:05 | P.PN ---
Subjective HISTORY OF PRESENT ILLNESS: This is a 83-year-old male with a past medical history significant for carotid stenosis with previous bilateral carotid endarterectomy, hypertension, hyperlipidemia, coronary artery disease with previous CABG and subsequent stenting, and peripheral arterial disease with previous lower extremity intervention. Patient follows with a space systems operations manager at [facility], Dr. Ramos. We have been asked to see the patient in consultation for congestive heart failure. Patient examined at the bedside in the emergency room. Patient presented to the hospital to chief complaint of shortness of breath. Patient states he has been feeling short of breath for the past 5 days. He also reports having a cough. He denied any fever at home. He denies any chest pain or pressure. Denies any lower extremity swelling. He states that he saw his primary space systems operations manager on Friday and at that time he just had a cough but no shortness of breath. He states that his space systems operations manager did recommend that he establish with a rn immunology. The patient gives additional history that he underwent a three-vessel CABG in 1996. He states sometime after that he had 2 subsequent stents placed but is unsure of the year. He states in June 2023 he underwent angioplasty and insertion of 2 more stents at [facility]. Patient also reports history of bilateral carotid endarterectomy performed previously by Dr. Pineda. He reports back in 2013 he underwent lower extremity intervention due to peripheral arterial disease. He states he was at [facility] earlier this month and states "On January 27 they put a graft in my chest and cleaned out the arteries in both of my legs". The patient was found to be hypoxic upon arrival to the emergency room with oxygen saturations in the mid 80s on room air. Patient was started on IV Lasix. Additionally, EKG on admission revealed atrial fibrillation with slow ventricular rate. DIAGNOSTICS: - EKG reveals atrial fibrillation with slow ventricular rate - Chest xray cardiomegaly, trace bilateral pleural effusions and patchy interstitial opacities bilaterally suggestive of pulmonary edema - CT angio of the chest: Cardiomegaly, moderate bilateral pleural effusions and scattered groundglass and consolidative opacities as above. Mediastinal and hilar lymphadenopathy, mildly distended ascending thoracic aorta. - Laboratory data: WBC 10.3. Hemoglobin 15.0. Platelet count 268. Sodium 136. Potassium 3.6. BUN 28. Creatinine 1.21. Troponin negative x 3. proBNP 1060. - Current home cardiac medications include aspirin 325 mg daily, amlodipine 10 mg daily, Plavix 75 mg daily, atenolol 25 mg daily, hydrochlorothiazide 25 mg daily, losartan 100 mg daily, atorvastatin 80 mg at night - No previous echocardiogram, stress test, or cardiac catheterization available in EMR for review 02/14/2024 Patient examined this morning at the bedside. Patient currently denies chest pa in or pressure. He reports improvement in his shortness of breath. He remains on IV Lasix. BUN 30. Creatinine 1.25. Telemetry reveals atrial fibrillation with controlled ventricular rate. Echocardiogram completed revealing ejection fraction 55 to 60%, mild MR, mild TR. PHYSICAL EXAM: VITAL SIGNS: Reviewed. GENERAL: Well-developed in no acute distress. HEENT: Head is normocephalic. Pupils are equal, round. Sclerae anicteric. Mucous membranes of the mouth are moist. Neck supple. No JVD or thyromegaly. Left carotid bruit noted. LUNGS: Respirations even and unlabored. Lungs diminished at the bases with a few fine crackles. HEART: Irregular rate and rhythm. S1 and S2 heard. Systolic murmur noted. ABDOMEN: Soft. Nondistended. Nontender. EXTREMITIES: Normal range of motion. No clubbing or cyanosis. Peripheral pulses intact. No lower extremity edema NEUROLOGIC: Awake and alert. Oriented x 3. ASSESSMENT: Shortness of breath Acute heart failure with preserved EF, 55 to 60% Acute hypoxic respiratory failure requiring supplemental oxygen New onset atrial fibrillation with controlled ventricular rate Coronary artery disease with previous CABG and subsequent stenting Peripheral arterial disease with previous lower extremity intervention History of carotid stenosis with previous bilateral carotid endarterectomy Hypertension Hyperlipidemia PLAN: Continue current cardiac medications Continue IV Lasix 40 mg every 12 hours. Possible transition to oral diuretics tomorrow Daily weights, accurate intake and output, and monitoring of kidney function Continue Plavix. Aspirin discontinued. Continue Eliquis 5 mg twice a day. Still awaiting records from Michael Hardy and Vi Drake Patient would like to establish care with Dr. Paige postdischarge Further recommendations pending patient course Nurse practitioner note has been reviewed by physician. Signing provider agrees with the documented findings, assessment, and plan of care documented by HEALTH ANALYST as a scribe. Objective - Vital Signs Vital signs: Vital Signs Temp 98.2 F 02/14/24 08:15 Pulse 55 L 02/14/24 11:33 Resp 20 02/14/24 11:33 BP 148/58 02/14/24 11:33 Pulse Ox 96 02/14/24 11:33 FiO2 Intake & Output 02/13/24 02/14/24 02/14/24 18:59 06:59 18:59 Intake Total 118 Output Total 400 Balance -282 Weight 92.986 kg 92.8 kg 92.8 kg Intake: Oral 118 Output: Urine 400 Other: Voiding Method Toilet Toilet - Labs CBC & Chem 7: 02/14/24 08:02 02/14/24 08:02 Labs: Abnormal Lab Results - Last 24 Hours (Table) 02/14/24 Range/Units 08:02 Sodium 136 L (137-145) mmol/L Potassium 3.2 L (3.5-5.1) mmol/L BUN 30 H (9-20) mg/dL Glucose 130 H (74-99) mg/dL
--- NOTE | 2024-02-14 12:45 | P.PN ---
Subjective Progress Note Date: 02/14/24 Principal diagnosis: Hospital course: Patient is a an 83-year-old male with past medical history of CAD with previous CABG and recent stent placement, and bilateral carotid endarterectomy, hypertension, hyperlipidemia, peripheral arterial disease presented to the ED with shortness of breath and coughing. He mentions of having a cough with a yellow sticky sputum production for 6-8 months. He recently saw his resources representative and underwent a balloon angioplasty on 01/28/24. Subsequently his resources representative wanted to do a nuclear stress test. Additonally, he started experiecing chills. That prompted him to go see his primary care physician who prescribed him Doxycycline. He mentions the cough was better after the antibiotic. But yesterday night he started experiencing shortness of breath and chest tightness. Moreover, he reports that the fingers of right hand are stiff when he wakes up in the morning that gets better during the day. Denies fever, palpitations, abdominal pain, nausea, vomiting, dysuria, hemturia, hematochezia, melena, numbness, joint pain, muscle aches. ED documentation reviewed. In the ED patient was treated with enalaprilat, DuoNeb, nitroglycerin ointment, 0.9 normal saline. Vitals on admission T 97.4 F, SD 54, RR 20, BP 174/71, O2 sat 86% on room air, 97% on 3 L oxygen via nasal cannula EKG independently interpreted as atrial fibrillation with rate 51 bpm, QTc 433 ms CXR shows cardiomegaly, trace bilateral pleural effusion and patchy interstitial opacities bilaterally suggestive of pulmonary edema/possible superimposed infectious etiology Chest CTA shows cardiomegaly and moderate bilateral pleural effusion and scatt ered groundglass and consolidative opacities, could reflect sequel of pulmonary edema with superimposed infectious etiology. Mediastinal and hilar lymphadenopathy. Mildly dilated ascending thoracic aorta Echocardiogram shows EF 55-60%, normal left ventricular size and systolic function, mild MR, AR, TR Labs on admission show WBC 10.3, hemoglobin 15, sodium 136, BUN 28, creatinine 1.21, lactic acid 1.5, magnesium 1.8 INR 1.0, D-dimer 4.32, troponin I <0.012 x 3, proBNP 1060 Respiratory panel is negative 02/14/24: Patient seen and examined at bedside today. No acute events overnight. Currently on 2L oxygen via nasal cannula. He complains of hemoptysis today. Procalcitonin is 0.06 and TSH is 1.530. Labs today show WBC 9.7, hemoglobin 14.8, sodium 136, potassium 3.2, BUN 30. Review of systems: Pertinent positives and negatives as discussed in HPI, a complete review of systems was performed and all other systems are negative. Vitals: Signs Reviewed Physical examination: General: nontoxic, no distress, appears at stated age Derm: warm, dry, intact Head: atraumatic, normocephalic, symmetric Eyes: EOMI, anicteric sclera Mouth: no lip lesion, mucus membranes moist Cardiovascular: irregular Lungs: CTA bilateral,no accessory muscle use Abdominal: soft, non-tender to palpation Extremities: No cyanosis, clubbing, or pedal edema. Neuro: Alert, Oriented, Gross neurological examination did not reveal any focal deficits. Psych: well appearing, appropriate affect Assessment/Plan: Patient is an 83-year-old male with past medical history of CAD with CABG and recent stent placement presented to the ED with shortness of breath. He has been admitted for acute hypoxic respiratory failure secondary to acute congestive heart failure Active: #. Acute hypoxic respiratory failure #. Acute congestive heart failure proBNP 1060 Echocardiogram shows EF 55-60%, normal left ventricular size and systolic function, mild MR, AR, TR Continue supplemental oxygen, currently on 3L oxygen via nasal cannula (Doesn't need oxygen at home) Continue DuoNebs 3 mL 3 times daily and furosemide 40 mg IV every 12 hours Accurate I/Os Continue telemetry monitoring Cardiology is following #. New onset atrial fibrillation with controlled ventricular rate Continue Eliquis 5 mg PO BID #. Hypokalemia Potassium chloride 40 meq PO once ordered Chronic: #. CAD s/p CABG and recent stenting on DAPT Continue Atorvastatin 80 mg p.o. at bedtime and Plavix 75 mg p.o. daily Aspirin discontinued #. Hypertension Continue amlodipine 10 mg PO daily, atenolol 25 mg p.o. daily, hydrochlorothiazide 25 mg p.o. daily, losartan 100 mg p.o. daily #. Anxiety Continue alprazolam 0.5 mg p.o. twice daily F: None E: Potassium chloride 40 meq PO N: Heart healthy diet A: Bed rest DVT prophylaxis: Eliquis 5 mg PO BID GI prophylaxis: Pantoprazole 40 mg p.o. daily Objective - Vital Signs Vital signs: Vital Signs Temp 98.0 F 02/14/24 03:28 Pulse 57 L 02/14/24 03:28 Resp 18 02/14/24 03:28 BP 156/69 02/14/24 03:28 Pulse Ox 94 L 02/14/24 03:28 FiO2 Intake & Output 02/13/24 02/14/24 02/14/24 18:59 06:59 18:59 Weight 92.986 kg 92.8 kg Other: Voiding Method Toilet - Labs CBC & Chem 7: 02/14/24 08:02 02/14/24 08:02
[2024-02-15] MEDS: hydrALAZINE HCL 25 MG TAB PO SCH (11:03)
[2024-02-15] MEDS: DAPAGLIFLOZIN PROPANEDIOL 10 MG TABLET PO SCH (11:03)
[2024-02-15 11:04] LABS: African American GFR (CKD) 60 (>60 ml/min/1.73 sqM); Anion Gap 10 mmol/L; Blood Urea Nitrogen 36 mg/dL (9-20); Calcium 9.3 mg/dL (8.4-10.2); Carbon Dioxide 28 mmol/L (22-30); Chloride 100 mmol/L (98-107); Glucose 97 mg/dL (74-99); Non-African American GFR(CKD) 52 (>60 ml/min/1.73 sqM); Potassium 3.4 mmol/L (3.5-5.1); Sodium 138 mmol/L (137-145)
[2024-02-15] MEDS: POTASSIUM CHLORIDE ER 20 MEQ TAB.ER PO SCH (11:07)
--- NOTE | 2024-02-15 11:16 | P.PN ---
Subjective HISTORY OF PRESENT ILLNESS: This is a 83-year-old male with a past medical history significant for carotid stenosis with previous bilateral carotid endarterectomy, hypertension, hyperlipidemia, coronary artery disease with previous CABG and subsequent stenting, and peripheral arterial disease with previous lower extremity intervention. Patient follows with a computer typesetter at [facility], Dr. Ramos. We have been asked to see the patient in consultation for congestive heart failure. Patient examined at the bedside in the emergency room. Patient presented to the hospital to chief complaint of shortness of breath. Patient states he has been feeling short of breath for the past 5 days. He also reports having a cough. He denied any fever at home. He denies any chest pain or pressure. Denies any lower extremity swelling. He states that he saw his primary computer typesetter on Friday and at that time he just had a cough but no shortness of breath. He states that his computer typesetter did recommend that he establish with a wafer fab technician. The patient gives additional history that he underwent a three-vessel CABG in 1996. He states sometime after that he had 2 subsequent stents placed but is unsure of the year. He states in June 2023 he underwent angioplasty and insertion of 2 more stents at [facility]. Patient also reports history of bilateral carotid endarterectomy performed previously by Dr. Pineda. He reports back in 2013 he underwent lower extremity intervention due to peripheral arterial disease. He states he was at [facility] earlier this month and states "On January 27 they put a graft in my chest and cleaned out the arteries in both of my legs". The patient was found to be hypoxic upon arrival to the emergency room with oxygen saturations in the mid 80s on room air. Patient was started on IV Lasix. Additionally, EKG on admission revealed atrial fibrillation with slow ventricular rate. DIAGNOSTICS: - EKG reveals atrial fibrillation with slow ventricular rate - Chest xray cardiomegaly, trace bilateral pleural effusions and patchy interstitial opacities bilaterally suggestive of pulmonary edema - CT angio of the chest: Cardiomegaly, moderate bilateral pleural effusions and scattered groundglass and consolidative opacities as above. Mediastinal and hilar lymphadenopathy, mildly distended ascending thoracic aorta. - Laboratory data: WBC 10.3. Hemoglobin 15.0. Platelet count 268. Sodium 136. Potassium 3.6. BUN 28. Creatinine 1.21. Troponin negative x 3. proBNP 1060. - Current home cardiac medications include aspirin 325 mg daily, amlodipine 10 mg daily, Plavix 75 mg daily, atenolol 25 mg daily, hydrochlorothiazide 25 mg daily, losartan 100 mg daily, atorvastatin 80 mg at night - No previous echocardiogram, stress test, or cardiac catheterization available in EMR for review 02/14/2024 Patient examined this morning at the bedside. Patient currently denies chest pa in or pressure. He reports improvement in his shortness of breath. He remains on IV Lasix. BUN 30. Creatinine 1.25. Telemetry reveals atrial fibrillation with controlled ventricular rate. Echocardiogram completed revealing ejection fraction 55 to 60%, mild MR, mild TR. 02/15/2024 Patient examined this morning at the bedside. Patient currently denies chest pain or pressure. He denies shortness of breath. He remains on IV Lasix. Creatinine today 1.27. BUN 36. Blood pressures remain elevated with a systolic in the 150s. PHYSICAL EXAM: VITAL SIGNS: Reviewed. GENERAL: Well-developed in no acute distress. HEENT: Head is normocephalic. Pupils are equal, round. Sclerae anicteric. Mucous membranes of the mouth are moist. Neck supple. No JVD or thyromegaly. Left carotid bruit noted. LUNGS: Respirations even and unlabored. Lungs clear to auscultation HEART: Irregular rate and rhythm. S1 and S2 heard. Systolic murmur noted. ABDOMEN: Soft. Nondistended. Nontender. EXTREMITIES: Normal range of motion. No clubbing or cyanosis. Peripheral pulses intact. No lower extremity edema NEUROLOGIC: Awake and alert. Oriented x 3. ASSESSMENT: Shortness of breath Acute heart failure with preserved EF, 55 to 60% Acute hypoxic respiratory failure requiring supplemental oxygen New onset atrial fibrillation with controlled ventricular rate Coronary artery disease with previous CABG and subsequent stenting Peripheral arterial disease with previous lower extremity intervention History of carotid stenosis with previous bilateral carotid endarterectomy Hypertension Hyperlipidemia PLAN: Continue current cardiac medications Add hydralazine 25 mg twice a day. Increased as needed for optimal blood pressure control Add Farxiga 10 mg daily Discontinue IV Lasix. Begin oral Lasix 40 mg daily Daily weights, accurate intake and output, and monitoring of kidney function Continue Plavix. Aspirin discontinued. Continue Eliquis 5 mg twice a day. Still awaiting records from Michael Hardy and [facility] Rankin Patient would like to establish care with Dr. Paige postdischarge Possible discharge tomorrow Further recommendations pending patient course Nurse practitioner note has been reviewed by physician. Signing provider agrees with the documented findings, assessment, and plan of care documented by BIOLOGY PROFESSOR as a scribe. Objective - Vital Signs Vital signs: Vital Signs Temp 98.2 F 02/15/24 08:06 Pulse 70 02/15/24 08:49 Resp 20 02/15/24 08:06 BP 158/67 02/15/24 08:06 Pulse Ox 94 L 02/15/24 08:06 FiO2 Intake & Output 02/14/24 02/15/24 02/15/24 18:59 06:59 18:59 Intake Total 576 236 Output Total 1650 525 Balance -1074 -289 Weight 92.8 kg 87.9 kg 87.7 kg Intake: Oral 576 236 Output: Urine 1650 525 Other: Voiding Method Toilet Toilet Toilet - Labs CBC & Chem 7: 02/14/24 08:02 02/15/24 10:10 Labs: Abnormal Lab Results - Last 24 Hours (Table) 02/15/24 Range/Units 10:10 Potassium 3.4 L (3.5-5.1) mmol/L BUN 36 H (9-20) mg/dL Creatinine 1.27 H (0.66-1.25) mg/dL
[2024-02-15 11:52] LABS: HCT 42.4 % (39.0-53.0); HGB 14.8 gm/dL (13.0-17.5); MCH 32.3 pg (25.0-35.0); MCV 92.2 fL (80.0-100.0); Mean Platelet Volume 7.7; Platelet Count 237 k/uL (150-450); RBC 4.59 m/uL (4.30-5.90); RDW 14.7 % (11.5-15.5)
--- NOTE | 2024-02-15 14:14 | P.PN ---
Subjective Progress Note Date: 02/15/24 Patient is a an 83-year-old male with past medical history of CAD with previous CABG and recent stent placement, and bilateral carotid endarterectomy, hypertension, hyperlipidemia, peripheral arterial disease presented to the ED with shortness of breath and coughing. He mentions of having a cough with a ye llow sticky sputum production for 6-8 months. He recently saw his brine room laborer and underwent a balloon angioplasty on 01/28/24. Subsequently his brine room laborer wanted to do a nuclear stress test. Additonally, he started experiecing chills. That prompted him to go see his primary care physician who prescribed him Doxycycline. He mentions the cough was better after the antibiotic. But yesterday night he started experiencing shortness of breath and chest tightness. Moreover, he reports that the fingers of right hand are stiff when he wakes up in the morning that gets better during the day. Denies fever, palpitations, abdominal pain, nausea, vomiting, dysuria, hemturia, hematochezia, melena, numbn ess, joint pain, muscle aches. ED documentation reviewed. In the ED patient was treated with enalaprilat, DuoNeb, nitroglycerin ointment, 0.9 normal saline. Vitals on admission T 97.4 F, [place] 54, RR 20, BP 174/71, O2 sat 86% on room air, 97% on 3 L oxygen via nasal cannula EKG independently interpreted as atrial fibrillation with rate 51 bpm, QTc 433 ms CXR shows cardiomegaly, trace bilateral pleural effusion and patchy interstitial opacities bilaterally suggestive of pulmonary edema/possible superimposed infectious etiology Chest CTA shows cardiomegaly and moderate bilateral pleural effusion and scattered groundglass and consolidative opacities, could reflect sequel of pulmonary edema with superimposed infectious etiology. Mediastinal and hilar lymphadenopathy. Mildly dilated ascending thoracic aorta Echocardiogram shows EF 55-60%, normal left ventricular size and systolic function, mild MR, AR, TR Labs on admission show WBC 10.3, hemoglobin 15, sodium 136, BUN 28, creatinine 1.21, lactic acid 1.5, magnesium 1.8 INR 1.0, D-dimer 4.32, troponin I <0.012 x 3, proBNP 1060 Respiratory panel is negative 02/14/24: Patient seen and examined at bedside today. No acute events overnight. Currently on 2L oxygen via nasal cannula. He complains of hemoptysis today. Procalcitonin is 0.06 and TSH is 1.530. Labs today show WBC 9.7, hemoglobin 14.8, sodium 136, potassium 3.2, BUN 30 02/15/2024 Patient evaluated today in follow-up in the medical floor. Is reporting improvement in shortness of breath. has been taken off the oxygen and currently maintaining saturations on room air. He has been transition to oral Lasix currently potassium level is 3.2. Heart rate is controlled at this time. Review of Systems Constitutional: Denied any fatigue denied any fever. Cardio vascular: denied any chest pain, palpitations Gastrointestinal: denied any nausea, vomiting, diarrhea Pulmonary: Denied any shortness of breath cough Neurologic denied any new focal deficits All inpatient medications were reviewed and appropriate changes in these medications as dictated in the interval history and assessment and plan. PHYSICAL EXAMINATION: GENERAL: The patient is alert and oriented x3, not in any acute distress. Well developed, well nourished. HEENT: Pupils are round and equally reacting to light. EOMI. No scleral icterus. No conjunctival pallor. Normocephalic, atraumatic. No pharyngeal erythema. No thyromegaly. CARDIOVASCULAR: S1 and S2 present. No murmurs, rubs, or gallops. PULMONARY: Chest is clear to auscultation, no wheezing or crackles. ABDOMEN: Soft, nontender, nondistended, normoactive bowel sounds. No palpable organomegaly. MUSCULOSKELETAL: No joint swelling or deformity. EXTREMITIES: No cyanosis, clubbing, or pedal edema. NEUROLOGICAL: Gross neurological examination did not reveal any focal deficits. SKIN: No rashes. Assessment and plan Acute congestive heart failure, diastolic dysfunction with normal ejection fraction 55 to 60% Acute hypoxic respiratory failure secondary to above currently weaned to room air Atrial fibrillation with rapid ventricular rate currently rate controlled on Eliquis for anticoagulation Hypokalemia replaced with potassium this is secondary to diuresis History of coronary artery disease with prior CABG and recent stenting History of hypertension History of anxiety Patient has been taken off of aspirin and will continue on Eliquis and Plavix Has been transitioned to oral lasix Weaned off oxygen and continues on room air. Give 80 meq of potassium Plan for discharge home tomorrow. The impression and plan of care has been dictated by Ana Ospina, Nurse Practitioner as directed. Dr. Clover MD I have performed a history and physical examination and medical decision making of this patient, discussed the same with the dictator, and agree with the dictators assessment and plan as written, documented as a scribe. Based on total visit time, I have performed more than 50% of this visit. Objective - Vital Signs Vital signs: Vital Signs Temp 98.2 F 02/15/24 08:06 Pulse 52 L 02/15/24 13:24 Resp 20 02/15/24 12:49 BP 150/69 02/15/24 11:00 Pulse Ox 94 L 02/15/24 12:49 FiO2 Intake & Output 02/14/24 02/15/24 02/15/24 18:59 06:59 18:59 Intake Total 576 354 Output Total 1650 1500 Balance -1074 -1146 Weight 92.8 kg 87.9 kg 87.7 kg Intake: Oral 576 354 Output: Urine 1650 1500 Other: Voiding Method Toilet Toilet Toilet - Labs CBC & Chem 7: 02/15/24 10:10 02/15/24 10:10 Labs: Abnormal Lab Results - Last 24 Hours (Table) 02/15/24 Range/Units 10:10 Potassium 3.4 L (3.5-5.1) mmol/L BUN 36 H (9-20) mg/dL Creatinine 1.27 H (0.66-1.25) mg/dL Assessment and Plan Time with Patient: Less than 30
[2024-02-16 05:06] VITALS: RESP 18
[2024-02-16 06:54] LABS: HCT 41.4 % (39.0-53.0); HGB 13.9 gm/dL (13.0-17.5); MCH 30.5 pg (25.0-35.0); MCHC 33.5 g/dL (31.0-37.0); MCV 91.3 fL (80.0-100.0); Mean Platelet Volume 7.3; Platelet Count 248 k/uL (150-450); RBC 4.53 m/uL (4.30-5.90); RDW 14.6 % (11.5-15.5); WBC 8.1 k/uL (3.8-10.6)
[2024-02-16 07:11] LABS: African American GFR (CKD) 60 (>60 ml/min/1.73 sqM); Anion Gap 6 mmol/L; Blood Urea Nitrogen 35 mg/dL (9-20); Calcium 9.2 mg/dL (8.4-10.2); Carbon Dioxide 24 mmol/L (22-30); Chloride 106 mmol/L (98-107); Glucose 101 mg/dL (74-99); Non-African American GFR(CKD) 52 (>60 ml/min/1.73 sqM); Potassium 3.5 mmol/L (3.5-5.1); Sodium 136 mmol/L (137-145)
[2024-02-16] MEDS: FUROSEMIDE 40 MG TAB PO SCH (09:07)
[2024-02-16 11:01] VITALS: BP 154/60; TEMP 97.9
--- NOTE | 2024-02-16 11:25 | P.PN ---
Subjective Progress Note Date: 02/16/24 HISTORY OF PRESENT ILLNESS: This is a 83-year-old male with a past medical history significant for carotid stenosis with previous bilateral carotid endarterectomy, hypertension, hyperlipidemia, coronary artery disease with previous CABG and subsequent stenting, and peripheral arterial disease with previous lower extremity intervention. Patient follows with a public aid eligibility assistant at [facility], Dr. Ramos. We have been asked to see the patient in consultation for congestive heart failure. Patient examined at the bedside in the emergency room. Patient presented to the hospital to chief complaint of shortness of breath. Patient states he has been feeling short of breath for the past 5 days. He also reports having a cough. He denied any fever at home. He denies any chest pain or pressure. Denies any lower extremity swelling. He states that he saw his primary public aid eligibility assistant on Friday and at that time he just had a cough but no shortness of breath. He states that his public aid eligibility assistant did recommend that he establish with a seal delivery vehicle officer. The patient gives additional history that he underwent a three-vessel CABG in 1996. He states sometime after that he had 2 subsequent stents placed but is unsure of the year. He states in June 2023 he underwent angioplasty and insertion of 2 more stents at [facility]. Patient also reports history of bilateral carotid endarterectomy performed previously by Dr. Pineda. He reports back in 2013 he underwent lower extremity intervention due to peripheral arterial disease. He states he was at [facility] earlier this month and states "On January 27 they put a graft in my chest and cleaned out the arteries in both of my legs". The patient was found to be hypoxic upon arrival to the emergency room with oxygen saturations in the mid 80s on room air. Patient was started on IV Lasix. Additionally, EKG on admission revealed atrial fibrillation with slow ventricular rate. DIAGNOSTICS: - EKG reveals atrial fibrillation with slow ventricular rate - Chest xray cardiomegaly, trace bilateral pleural effusions and patchy interstitial opacities bilaterally suggestive of pulmonary edema - CT angio of the chest: Cardiomegaly, moderate bilateral pleural effusions and scattered groundglass and consolidative opacities as above. Mediastinal and hilar lymphadenopathy, mildly distended ascending thoracic aorta. - Laboratory data: WBC 10.3. Hemoglobin 15.0. Platelet count 268. Sodium 136. Potassium 3.6. BUN 28. Creatinine 1.21. Troponin negative x 3. proBNP 1060. - Current home cardiac medications include aspirin 325 mg daily, amlodipine 10 mg daily, Plavix 75 mg daily, atenolol 25 mg daily, hydrochlorothiazide 25 mg daily, losartan 100 mg daily, atorvastatin 80 mg at night - No previous echocardiogram, stress test, or cardiac catheterization available in EMR for review 02/14/2024 Patient examined this morning at the bedside. Patient currently denies chest pain or pressure. He reports improvement in his shortness of breath. He remains on IV Lasix. BUN 30. Creatinine 1.25. Telemetry reveals atrial fibrillation with controlled ventricular rate. Echocardiogram completed revealing ejection fraction 55 to 60%, mild MR, mild TR. 02/15/2024 Patient examined this morning at the bedside. Patient currently denies chest pain or pressure. He denies shortness of breath. He remains on IV Lasix. Creatinine today 1.27. BUN 36. Blood pressures remain elevated with a systolic in the 150s. 02/16/2024 Patient seen and examined. Patient remains in atrial fibrillation running in the 40s and 50s. He has been on atenolol 25 mg daily. Blood pressure 154/60, pulse ox 93 to 97% on room air. Patient no longer requires oxygen therapy. Repeat blood work reveals hemoglobin 13.9, BUN 35 creatinine 1.28. PHYSICAL EXAM: VITAL SIGNS: Reviewed. GENERAL: Well-developed in no acute distress. HEENT: Head is normocephalic. Pupils are equal, round. Sclerae anicteric. Mucous membranes of the mouth are moist. Neck supple. No JVD or thyromegaly. Left carotid bruit noted. LUNGS: Respirations even and unlabored. Lungs clear to auscultation HEART: Irregular rate and rhythm. S1 and S2 heard. Systolic murmur noted. ABDOMEN: Soft. Nondistended. Nontender. EXTREMITIES: No clubbing or cyanosis. Peripheral pulses intact. No lower extremity edema NEUROLOGIC: Awake and alert. Oriented x 3. ASSESSMENT: Shortness of breath Acute heart failure with preserved EF, 55 to 60% Acute hypoxic respiratory failure requiring supplemental oxygen New onset paroxysmal atrial fibrillation with controlled ventricular rate Coronary artery disease with previous CABG and subsequent stenting Peripheral arterial disease with previous lower extremity intervention History of carotid stenosis with previous bilateral carotid endarterectomy Hypertension Hyperlipidemia PLAN: Continue current cardiac medications: Amlodipine 10 mg daily, Eliquis 5 mg twice daily, atorvastatin 80 mg at bedtime, Plavix 75 mg daily, Farxiga 10 mg daily, Lasix 40 mg daily, hydralazine 25 mg twice daily, hydrochlorothiazide 25 mg daily, losartan 100 mg daily Decrease atenolol to 12.5 mg daily Daily weights, accurate intake and output, and monitoring of kidney function Patient would like to establish care with Dr. Paige postdischarge Patient is cleared for discharge from cardiology. Nurse practitioner note has been reviewed by physician. Signing provider agrees with the documented findings, assessment, and plan of care documented by BOTTLING LINE OPERATOR as a scribe. Objective - Vital Signs Vital signs: Vital Signs Temp 97.8 F 02/16/24 04:00 Pulse 64 02/16/24 08:25 Resp 18 02/16/24 04:00 BP 141/65 02/16/24 04:00 Pulse Ox 93 L 02/16/24 08:25 FiO2 Intake & Output 02/15/24 02/16/24 02/16/24 18:59 06:59 18:59 Intake Total 472 Output Total 1750 900 Balance -1278 -900 Weight 87.7 kg 87.5 kg Intake: Oral 472 Output: Urine 1750 900 Other: Voiding Method Toilet - Labs CBC & Chem 7: 02/16/24 06:32 02/16/24 06:32 Labs: Abnormal Lab Results - Last 24 Hours (Table) 02/15/24 02/16/24 Range/Units 10:10 06:32 Sodium 136 L (137-145) mmol/L Potassium 3.4 L (3.5-5.1) mmol/L BUN 36 H 35 H (9-20) mg/dL Creatinine 1.27 H 1.28 H (0.66-1.25) mg/dL Glucose 101 H (74-99) mg/dL
[2024-02-16 12:34] VITALS: PULSE 60
--- NOTE | 2024-02-19 10:29 | P.DS ---
Providers Date of admission: 02/12/24 21:11 Attending physician: Marci Barrios Consults: 02/12/24 21:09 Consult Physician Routine Consulting Provider: Inge Paige Consult Reason/Comments: chf Do you want consulting provider notified?: Yes Primary care physician: Beny Negron MD Hospital Course: Final Diagnosis Acute congestive heart failure, diastolic dysfunction with normal ejection fraction 55 to 60% Acute hypoxic respiratory failure secondary to above currently weaned to room air Atrial fibrillation with rapid ventricular rate currently rate controlled on Eliquis for anticoagulation Hypokalemia replaced with potassium this is secondary to diuresis History of coronary artery disease with prior CABG and recent stenting hypertension Hyperlipidemia History of anxiety Peripheral arterial disease with previous lower extremity intervention History of carotid stenosis with previous bilateral carotid endarterectomy. Discharge Disposition Patient is stable for discharge home. Recommended to continue all same cardiac medications with the exception of decreasing atenolol to 12.5 mg daily. This was recommended by cardiology after DC put in and will need to be addressed in follow up. Patient has been started on oral lasix 40 mg daily. Eliquis 5 mg BID for the new onset atrial fibrillation. Patient has also been started on farxiga and hydralazine. Follow up with PCP Dr Beny Negron has an appt made for 02/23 at 11am. He will be establishing with Dr Paige on discharge. Hospital Course Patient is a an 83-year-old male with past medical history of CAD with previous CABG and recent stent placement, and bilateral carotid endarterectomy, hypertension, hyperlipidemia, peripheral arterial disease presented to the ED with shortness of breath and coughing. He mentions of having a cough with a yellow sticky sputum production for 6-8 months. He recently saw his riveter pneumatic and underwent a balloon angioplasty on 01/28/24. Subsequently his riveter pneumatic wanted to do a nuclear stress test. Additonally, he started experiecing chills. That prompted him to go see his primary care physician who prescribed him Doxycycline. He mentions the cough was better after the antibiotic. But yeste rday night he started experiencing shortness of breath and chest tightness. Moreover, he reports that the fingers of right hand are stiff when he wakes up in the morning that gets better during the day. Denies fever, palpitations, abdominal pain, nausea, vomiting, dysuria, hemturia, hematochezia, melena, numbness, joint pain, muscle aches. ED documentation reviewed. In the ED patient was treated with enalaprilat, DuoNeb, nitroglycerin ointment, 0.9 normal saline. Chest CTA shows cardiomegaly and moderate bilateral pleural effusion and scattered groundglass and consolidative opacities, could reflect sequel of pulmonary edema with superimposed infectious etiology. Mediastinal and hilar lymphadenopathy. Mildly dilated ascending thoracic aorta. Echocardiogram shows EF 55-60%, normal left ventricular size and systolic function, mild MR, AR, TR. Labs on admission show WBC 10.3, hemoglobin 15, sodium 136, BUN 28, creatinine 1.21, lactic acid 1.5, magnesium 1.8. INR 1.0, D-dimer 4.32, troponin I <0.012 x 3, proBNP 1060. Viral respiratory panel is negative. He was found to be in atrial fibrillation. Admitted to the hospital with cardiac consultation. Patient was monitored. Had echocardiogram done showing normal LV size and systolic function with mild Shiela, aortic and tricuspid regurgitation. He has no chest pain, no shortness of breath. Heart rate is controlled. He will be discharged home with the above mentioned recommendations. Please see medication reconciliation for a list of current medications. Thank you for allowing us to participate in the care of this patient. The impression and plan of care has been dictated by Ana Ospina, Nurse Practitioner as directed. Dr. Clover MD I have performed a history and physical examination and medical decision making of this patient, discussed the same with the dictator, and agree with the dictators assessment and plan as written, documented as a scribe. Based on total visit time, I have performed more than 50% of this visit. Patient Condition at Discharge: Stable Plan - Discharge Summary Discharge Rx Participant: No New Discharge Prescriptions: New Dapagliflozin Propanediol [Farxiga] 10 mg PO DAILY #30 tab hydrALAZINE HCL [Apresoline] 25 mg PO BID #60 tab Apixaban [Eliquis] 5 mg PO BID #60 tab Furosemide [Lasix] 40 mg PO DAILY #30 tab Continue Pentoxifylline [TRENtal] 400 mg PO BID Nitroglycerin Sl Tabs [Nitrostat] 0.4 mg SUBLINGUAL Q5M PRN PRN Reason: Chest Pain Losartan Potassium [Cozaar] 100 mg PO DAILY hydroCHLOROthiazide [Hydrodiuril] 25 mg PO DAILY atenoloL [Tenormin] 25 mg PO DAILY amLODIPine [Norvasc] 10 mg PO DAILY Aspirin EC [Ecotrin] 325 mg PO DAILY ALPRAZolam [Xanax] 0.25 mg PO BID PRN PRN Reason: Anxiety Silver Sulfadiazine [SSD 1% Cream] 1 applic TOPICAL DAILY Omeprazole [PriLOSEC] 20 mg PO DAILY Ketoconazole 2% Cream [Nizoral 2%] 1 applic TOPICAL DAILY Ipratropium [place] 0.06%Nasal [Atrovent Nasal 0.06%] 2 spray EA NOSTRIL TID PRN PRN Reason: Allergy Symptoms Clopidogrel [Plavix] 75 mg PO DAILY Atorvastatin [Lipitor] 80 mg PO HS Discontinued Doxycycline Hyclate 100 mg PO BID Discharge Medication List ALPRAZolam [Xanax] 0.25 mg PO BID PRN 02/12/24 [History] Aspirin EC [Ecotrin] 325 mg PO DAILY 02/12/24 [History] Atorvastatin [Lipitor] 80 mg PO HS 02/12/24 [History] Clopidogrel [Plavix] 75 mg PO DAILY 02/12/24 [History] Ipratropium [place] 0.06%Nasal [Atrovent Nasal 0.06%] 2 spray EA NOSTRIL TID PRN 02/12/24 [History] Ketoconazole 2% Cream [Nizoral 2%] 1 applic TOPICAL DAILY 02/12/24 [History] Losartan Potassium [Cozaar] 100 mg PO DAILY 02/12/24 [History] Nitroglycerin Sl Tabs [Nitrostat] 0.4 mg SUBLINGUAL Q5M PRN 02/12/24 [History] Omeprazole [PriLOSEC] 20 mg PO DAILY 02/12/24 [History] Pentoxifylline [TRENtal] 400 mg PO BID 02/12/24 [History] Silver Sulfadiazine [SSD 1% Cream] 1 applic TOPICAL DAILY 02/12/24 [History] amLODIPine [Norvasc] 10 mg PO DAILY 02/12/24 [History] atenoloL [Tenormin] 25 mg PO DAILY 02/12/24 [History] hydroCHLOROthiazide [Hydrodiuril] 25 mg PO DAILY 02/12/24 [History] Apixaban [Eliquis] 5 mg PO BID #60 tab 02/16/24 [Rx] Dapagliflozin Propanediol [Farxiga] 10 mg PO DAILY #30 tab 02/16/24 [Rx] Furosemide [Lasix] 40 mg PO DAILY #30 tab 02/16/24 [Rx] hydrALAZINE HCL [Apresoline] 25 mg PO BID #60 tab 02/16/24 [Rx] Follow up Appointment(s)/Referral(s): Inge Paige MD [STAFF PHYSICIAN] - 03/01/24 11:00 am Beny Negron MD [Primary Care Provider] - 02/24/24 11:00 am Ambulatory/Diagnostic Orders: Basic Metabolic Panel [LAB.AMB] Time Frame: 3 Days, Location: None Selected Patient Instructions/Handouts: Heart Failure (DC) Discharge Disposition: HOME SELF-CARE
== END 2024-02-16 13:34 | disposition home or self-care (01) | DRG 291 ==
LOC: EC 17:53 → 3SCARD 21:11
PROVIDERS: ADMIT Hospitalist; ATTEND Hospitalist
PROC: 3E0F7SF Introduction of Other Gas into Respiratory Tract, Via Natural or Artificial Opening (ICD-10-PCS; principal; 2024-02-12)
DX: I11.0 Hypertensive heart disease with heart failure (principal); I50.41 Acute combined systolic (congestive) and diastolic (congestive) heart failure; J96.01 Acute respiratory failure with hypoxia; T50.2X5A Adverse effect of carbonic-anhydrase inhibitors, benzothiadiazides and other diuretics, initial encounter; E78.5 Hyperlipidemia, unspecified; E87.6 Hypokalemia; Z11.52 Encounter for screening for COVID-19; F41.9 Anxiety disorder, unspecified; I25.10 Atherosclerotic heart disease of native coronary artery without angina pectoris; I25.2 Old myocardial infarction; I48.0 Paroxysmal atrial fibrillation; I77.810 Thoracic aortic ectasia; I73.9 Peripheral vascular disease, unspecified; I08.3 Combined rheumatic disorders of mitral, aortic and tricuspid valves; Z79.01 Long term (current) use of anticoagulants; Z79.02 Long term (current) use of antithrombotics/antiplatelets; Z79.82 Long term (current) use of aspirin; Z79.899 Other long term (current) drug therapy; Z87.891 Personal history of nicotine dependence; Z95.1 Presence of aortocoronary bypass graft; Z95.5 Presence of coronary angioplasty implant and graft; Z91.030 Bee allergy status; Z86.79 Personal history of other diseases of the circulatory system
CPT/HCPCS: 36415; 71045; 71275; 80048; 80053; 83605; 83735; 83880; 84145; 84443; 84484; 85025; 85027; 85379; 85610; 85730; 87636; 93005; 93306; 94640; 94760; 96361; 96374; 96375; 96376; 99291